=== PATIENT | male | born 1950 | race Caucasian/White ===

== ENCOUNTER 2016-11-30 16:27 | Emergency (ER) | payer MEDICARE ==
[~2016-11-30] VITALS: Wt 93.9 kg
[~2016-11-30 16:27] MED LIST: ALBUTEROL0.09 MG/A2 INH; ASMANEX TW0.22 MG/AC PO; AVELOX400 MG; BENICAR20 MG PO; CAPOTEN25 MG PO; COUMADIN10 MG PO; COUMADIN5 M2 PO; COUMADIN5 MG PO; CYCLOBENZAPRINE10 MG PO; DAYPRO600 M1 PO; DIOVAN160 M1; DOXYCYCLINE MO100 MG PO; ENALAPRIL5 MG PO; FLEXERIL10 MG PO; FLOMAX0.4 MG PO; Fioricet 325 MG1 TAB PO; HYDROCODONE BIT1 T11 PO; LIPITOR40 MG PO; LOVENOX100 MG/1 M PO; MOTRIN800 MG PO; NAPROSYN500 MG; NEURONTIN800 MG; NORFLEX100 MG PO; OMEPRAZOLE20 MG; POLYTRIM 1000010 ML OPH; PRAVACHOL40 MG PO; PREDNISONE10 MG PO; PROAIR HFA0.09 MG/AC IH; REGLAN10 M1 PO; ROBAXIN750 MG PO; SINGULAIR10 MG; TRAMADOL HCL50 MG PO; TRAMADOL50 MG; TYLENOL325 M1 PO; VASOTEC10 MG PO; VICODIN 5/500 505 MG PO; VICODIN 500 MG-1 TAB PO; ZOFRAN ODT4 MG SL
[2016-11-30 16:44] VITALS: BP 105/44
[2016-11-30] MEDS ORDERED: LEVOFLOXACIN500 MG PO (17:00)
[2016-11-30] MEDS ORDERED: NAPROSYN500 MG PO (17:00)
[2016-11-30] MEDS ORDERED: CLINDAMYCIN150 MG PO (17:00)
[2016-11-30] MEDS ORDERED: HYDROCODONE BIT1 T11 PO (17:28)
== END 2016-11-30 17:54 | disposition home or self-care (01) ==
LOC: ED 16:27
DX: S52.501A Unspecified fracture of the lower end of right radius, initial encounter for closed fracture (principal); F17.200 Nicotine dependence, unspecified, uncomplicated; Z88.0 Allergy status to penicillin; Z79.01 Long term (current) use of anticoagulants; W54.0XXA Bitten by dog, initial encounter; Y93.89 Activity, other specified; Y92.9 Unspecified place or not applicable; Y99.9 Unspecified external cause status

== ENCOUNTER 2016-12-01 14:21 | Emergency (ER) | payer MEDICARE ==
[~2016-12-01 14:21] MED LIST changes: +CLINDAMYCIN150 MG PO; +LEVOFLOXACIN500 MG PO; +NAPROSYN500 MG PO
== END 2016-12-01 19:02 | disposition home or self-care (01) ==
LOC: ED 14:21
DX: Z29.12 Encounter for prophylactic antivenin (principal); Z79.899 Other long term (current) drug therapy; Z79.01 Long term (current) use of anticoagulants; Z88.0 Allergy status to penicillin; Z88.1 Allergy status to other antibiotic agents

== ENCOUNTER 2016-12-05 19:05 | Emergency (ER) | payer MEDICARE ==
[~2016-12-05] VITALS: Ht 167.6 cm; Wt 90.7 kg
[2016-12-05 19:20] VITALS: BP 126/56
[2016-12-05] MEDS ORDERED: TRAMADOL HCL50 MG PO (19:22)
[2016-12-05] MEDS ORDERED: PREDNISONE20 M1 PO (21:14)
[2016-12-05] MEDS ORDERED: NORCO 5-325 TA1 EACH PO (21:14)
[2016-12-05] MEDS ORDERED: Orphenadrine C100 MG PO (21:14)
== END 2016-12-05 21:20 | disposition home or self-care (01) ==
LOC: ED 19:05
DX: M54.42 Lumbago with sciatica, left side (principal); F17.200 Nicotine dependence, unspecified, uncomplicated; Z95.2 Presence of prosthetic heart valve; Z98.890 Other specified postprocedural states; Z88.0 Allergy status to penicillin; Z88.1 Allergy status to other antibiotic agents

== ENCOUNTER → 2016-12-21 | Outpatient (CLI) | payer MEDICARE ==
[~2016-12-21] MED LIST changes: +NORCO 5-325 TA1 EACH PO; +Orphenadrine C100 MG PO; +PREDNISONE20 M1 PO
== END | disposition home or self-care (01) ==
LOC: ORTHO 03:03
DX: M25.531 Pain in right wrist (principal); M25.431 Effusion, right wrist

== ENCOUNTER → 2017-03-24 | Outpatient (CLI) | payer MEDICARE | END | disposition home or self-care (01) | LOC: US 09:00 | DX: Z13.6 Encounter for screening for cardiovascular disorders (principal) ==

== ENCOUNTER 2018-06-30 13:40 | Emergency (ER) | payer MEDICARE ==
[~2018-06-30] VITALS: Ht 167.6 cm; Wt 93.9 kg
[2018-06-30 13:40] VITALS: BP 123/48
[2018-06-30 14:04] LABS: BASO # 0.1 10*3/uL (0.0-0.1); BASO % 0.6 % (0.0-1.0); EOS # 0.2 10*3/uL (0.0-0.4); EOS % 1.8 % (1.0-4.0); HEMOGLOBIN 12.2 g/dl (14.0-18.0); LYMPH # 2.7 10*3/uL (1.3-4.4); LYMPH % 26.6 % (27.0-41.0); MEAN CELL VOLUME 93.6 fl (80.0-94.0); MEAN CORPUSCULAR HGB CONC 32.1 g/dl (33.0-37.0); MEAN PLATELET VOLUME 10.6 fl (9.6-12.3); MONO # 0.9 10*3/uL (0.1-1.0); MONO % 9.1 % (3.0-9.0); NEUT # 6.1 10*3/uL (2.3-7.9); NEUT % 60.7 % (47.0-73.0); PLATELET COUNT AUTOMATED 163 10*3/uL (130-400); RED BLOOD COUNT 4.06 10*6/uL (4.50-5.90); RED CELL DISTRI WIDTH 15.8 % (0-14.5); WHITE BLOOD COUNT 10.1 10*3/uL (4.8-10.8)
[2018-06-30 14:15] LABS: ACT PARTIAL THROMBO TIME 35.5 SECONDS (20.8-31.5); INTERNATIONAL NORM RATIO 2.4 (2.0-3.5)
[2018-06-30 14:27] LABS: ALBUMIN 3.9 gm/dl (3.1-4.5); ALKALINE PHOSPHATASE 75 U/L (45-117); BUN 26 mg/dl (7-24); CHLORIDE 108 mmol/L (98-107); CREATININE 1.35 mg/dL (0.70-1.30); LIPASE 126 U/L (73-393); POTASSIUM 4.6 mmol/L (3.5-5.1); SGOT/AST 9 IU/L (3-35); SGPT/ALT 21 U/L (12-78); SODIUM 138 mmol/L (136-145); TOTAL PROTEIN 7.5 gm/dL (6.4-8.2)
[2018-06-30 14:40] LABS: BILIRUBIN NEGATIVE (NEGATIVE); BLOOD NEGATIVE (NEGATIVE); CLARITY CLEAR (CLEAR); COLOR YELLOW (YELLOW); GLUCOSE NEGATIVE (NEGATIVE); KETONE NEGATIVE (NEGATIVE); LEUKO ESTERASE NEGATIVE (NEGATIVE); NITRITE NEGATIVE (NEGATIVE); PH 5.5 (5.0-9.0); UROBILINOGEN 0.2 E.U./dl (0.2-1.0)
[2018-06-30 14:50] LABS: BACTERIA TRACE; RBC 0-2 rbc/hpf (0-2); WBC 0-2 wbc/hpf (0-5)
[2018-06-30] MEDS ORDERED: MEDROL DOSEPAK4 MG PO (15:09)
== END 2018-06-30 15:15 | disposition home or self-care (01) ==
LOC: ED 13:40
PROVIDERS: Emergency Medicine
DX: K57.30 Diverticulosis of large intestine without perforation or abscess without bleeding (principal); R26.2 Difficulty in walking, not elsewhere classified; F17.210 Nicotine dependence, cigarettes, uncomplicated; Z79.02 Long term (current) use of antithrombotics/antiplatelets; Z88.1 Allergy status to other antibiotic agents; Z88.0 Allergy status to penicillin; Z79.899 Other long term (current) drug therapy

== ENCOUNTER 2018-11-07 12:42 | Emergency (ER) | payer MEDICARE ==
[~2018-11-07] VITALS: Ht 167.6 cm; Wt 93.9 kg
[2018-11-07 12:42] VITALS: BP 151/98
[~2018-11-07 12:42] MED LIST changes: +MEDROL DOSEPAK4 MG PO
[2018-11-07 13:23] LABS: BILIRUBIN NEGATIVE (NEGATIVE); BLOOD 1+ (NEGATIVE); CLARITY SL CLOUDY (CLEAR); COLOR YELLOW (YELLOW); GLUCOSE NEGATIVE (NEGATIVE); KETONE NEGATIVE (NEGATIVE); LEUKO ESTERASE NEGATIVE (NEGATIVE); NITRITE NEGATIVE (NEGATIVE); SPECIFIC GRAVITY 1.015 (1.005-1.030)
[2018-11-07 13:32] LABS: BASO % 0.2 % (0.0-1.0); EOS % 0.1 % (1.0-4.0); HEMATOCRIT 37.5 % (42.0-52.0); HEMOGLOBIN 12.1 g/dl (14.0-18.0); LYMPH % 12.5 % (27.0-41.0); MEAN CELL VOLUME 91.5 fl (80.0-94.0); MEAN CORPUSCULAR HGB 29.5 pg (27.0-31.0); MEAN CORPUSCULAR HGB CONC 32.3 g/dl (33.0-37.0); MEAN PLATELET VOLUME 11.2 fl (9.6-12.3); MONO # 0.7 10*3/uL (0.1-1.0); MONO % 8.7 % (3.0-9.0); NEUT # 6.2 10*3/uL (2.3-7.9); NEUT % 77.3 % (47.0-73.0); PLATELET COUNT AUTOMATED 187 10*3/uL (130-400); RED CELL DISTRI WIDTH 15.5 % (0-14.5); WHITE BLOOD COUNT 8.1 10*3/uL (4.8-10.8)
[2018-11-07 13:44] LABS: BACTERIA TRACE; RBC 16-20 rbc/hpf (0-2)
[2018-11-07 13:46] LABS: ALBUMIN 3.9 gm/dl (3.1-4.5); CREATININE 1.58 mg/dL (0.70-1.30); POTASSIUM 4.3 mmol/L (3.5-5.1); TOTAL PROTEIN 7.9 gm/dL (6.4-8.2)
== END 2018-11-07 15:15 | disposition home or self-care (01) ==
LOC: ED 12:42
PROVIDERS: Emergency Medicine
DX: B34.9 Viral infection, unspecified (principal); Z88.0 Allergy status to penicillin; Z88.1 Allergy status to other antibiotic agents; Z79.899 Other long term (current) drug therapy

== ENCOUNTER 2019-02-11 23:06 | Day surgery (SDC) | payer MEDICARE ==
[~2019-02-11] VITALS: Ht 167.6 cm; Wt 88.9 kg
--- NOTE | ~2019-02-11 | EKG ---
[place], [place] ELECTROCARDIOGRAM REPORT NAME: ROSALINA ARIAS UNIT #: [id number] ROOM: DOCTOR: EPIPHANY DRAFT REPORT BIRTHDATE: [birth year] [facility] Test Date: 2019-02-17 Test Time: 11:46:32 Pat Name: ROSALINA ARIAS Department: Room: Gender: M Web Production Designer: Teresa Lima : 1950 Requested By: SILVESTRE FLORES Order Number: [id number] Reading MD: Silvestre Flores MD Measurements Intervals [place] Rate: 66 P: -12 SC: 102 QRS: 42 QRSD: 90 T: 52 QT: 411 QTc: 431 Interpretive Statements Sinus rhythm Short SC interval Compared to ECG 02/12/2019 05:08:50 Short SC interval now present Ventricular premature complex(es) no longer present Aberrant conduction of supraventricular beat(s) no longer present Myocardial infarct finding no longer present Electronically Signed On 02-19-2019 3:18:39 PDT by Silvestre Flores MD CM:EKGRPT:ELECTROCARDIOGRAM REPORT [id number] SILVESTRE FLORES MD EPIPHANY DRAFT REPORT SILVESTRE FLORES MD
--- NOTE | ~2019-02-11 | PROC NOTE ---
[place], [place] PROCEDURE NOTE NAME: ROSALINA ARIAS UNIT #: [id number] ROOM: DOCTOR: KHAI GALVAN MD BIRTHDATE: [birth year] DOS: 02/17/2019 PROCEDURE: Replacement of a pacemaker generator and replacement of an atrial lead. PROCEDURE DETAILS: Sedation was provided with general anesthesia and the procedure was performed in the operating room. Pacemaker was located in the left anterior chest. This was prepped and draped for a sterile approach. A 1% lidocaine was infiltrated locally and a horizontal incision was made over the pacemaker generator and it was explanted. It was realized that the atrial lead had been severed. An 18-gauge Cook needle was used to access the subclavian vein, which was done without much difficulty and a 7-Malay peel-away sheath were then introduced into the subclavian vein followed by introduction of a screw in atrial lead, which was introduced into the right atrium and J-shaped stylet was used to introduce that into the right atrial appendage. It was screwed in place and good measurements were obtained. The length of the lead was optimized and the sleeve on the lead was advanced to the entry side and tied in with a 3-0 Ethibond. A 3-0 Ethibond was used to immobilize the lead to the floor of the pocket. The pocket was revised inferiorly and medially because of the large pacemaker generator. It was irrigated and leads were attached to the pacemaker generator, which was placed in the pocket. It was immobilized using a 3-0 Ethibond and subcutaneous tissue was closed with 3-0 chromic catgut with excellent apposition. An Op-Site was applied followed by a pressure dressing. INDICATIONS: 1. Pacemaker generator battery was . 2. Quantitative Equity Head, none. COMPLICATIONS: 1. [place] of an atrial lead, which was replaced. 2. Quantitative Equity Head, none. SPECIMENS: Old generator and tip of the atrial lead. The patient was given 1 gram of vancomycin before the procedure was initiated. [place], [place] PROCEDURE NOTE NAME: ROSALINA ARIAS UNIT #: [id number] ROOM: DOCTOR: KHAI GALVAN MD BIRTHDATE: [birth year] KHAI GALVAN MD CM:BIJU:PROCEDURE NOTE [id number] KHAI GALVAN MD
[2019-02-12] MEDS ORDERED: LOSARTAN POTASS50 M1 PO (02:21)
[2019-02-12] MEDS ORDERED: CYMBALTA30 MG PO (02:22)
[2019-02-12] MEDS ORDERED: WARFARIN SODIUM10 MG PO (02:23)
[2019-02-17] VITALS (8 sets, daily range): BP systolic 95–123; BP diastolic 42–65
[2019-02-17] MEDS ORDERED: Coumadin10 MG PO (08:55)
[2019-02-17] MEDS ORDERED: COUMADIN5 M2 PO (08:56)
[2019-02-17] MEDS ORDERED: COZAAR50 M1 PO (08:58)
[2019-02-17] MEDS ORDERED: CIPRO500 MG PO (12:07)
== END 2019-02-17 | disposition home or self-care (01) ==
LOC: SDC 02-17 08:50
DX: T82.190A Other mechanical complication of cardiac electrode, initial encounter (principal); Y83.8 Other surgical procedures as the cause of abnormal reaction of the patient, or of later complication, without mention of misadventure at the time of the procedure; Y92.89 Other specified places as the place of occurrence of the external cause; I25.10 Atherosclerotic heart disease of native coronary artery without angina pectoris; I25.2 Old myocardial infarction; I10 Essential (primary) hypertension; K21.9 Gastro-esophageal reflux disease without esophagitis; E78.5 Hyperlipidemia, unspecified; J44.9 Chronic obstructive pulmonary disease, unspecified; F10.21 Alcohol dependence, in remission; N40.0 Benign prostatic hyperplasia without lower urinary tract symptoms; E66.9 Obesity, unspecified; Z68.31 Body mass index [BMI] 31.0-31.9, adult; F32.9 Major depressive disorder, single episode, unspecified; Z79.01 Long term (current) use of anticoagulants; Z72.0 Tobacco use; Z88.8 Allergy status to other drugs, medicaments and biological substances; Z91.018 Allergy to other foods; Z79.899 Other long term (current) drug therapy; Z98.890 Other specified postprocedural states; Z95.2 Presence of prosthetic heart valve; Z82.49 Family history of ischemic heart disease and other diseases of the circulatory system

== ENCOUNTER → 2019-03-13 | Outpatient (CLI) | payer MEDICARE ==
[~2019-03-13] MED LIST changes: +CIPRO500 MG PO; +COZAAR50 M1 PO; +CYMBALTA30 MG PO; +Coumadin10 MG PO; +LOSARTAN POTASS50 M1 PO; +WARFARIN SODIUM10 MG PO
== END | disposition home or self-care (01) ==
LOC: RAD 12:50
DX: J44.9 Chronic obstructive pulmonary disease, unspecified (principal)

== ENCOUNTER → 2019-03-19 | Outpatient (CLI) | payer MEDICARE | END | disposition home or self-care (01) | LOC: RAD 15:08 | DX: M47.812 Spondylosis without myelopathy or radiculopathy, cervical region (principal); M54.12 Radiculopathy, cervical region ==

== ENCOUNTER → 2019-07-07 | Outpatient (CLI) | payer MEDICARE | END | disposition home or self-care (01) | LOC: RAD 17:33 → EDSTATUS 17:36 | DX: M16.12 Unilateral primary osteoarthritis, left hip (principal) ==

== ENCOUNTER 2019-09-05 12:28 | Emergency (ER) | payer MEDICARE ==
[~2019-09-05] VITALS: Wt 92.1 kg
[2019-09-05 12:29] VITALS: BP 153/56
== END 2019-09-05 13:12 | disposition home or self-care (01) ==
LOC: ED 12:28
DX: H60.92 Unspecified otitis externa, left ear (principal); I25.10 Atherosclerotic heart disease of native coronary artery without angina pectoris; G89.29 Other chronic pain; J44.9 Chronic obstructive pulmonary disease, unspecified; K21.9 Gastro-esophageal reflux disease without esophagitis; I25.2 Old myocardial infarction; E78.5 Hyperlipidemia, unspecified; E66.9 Obesity, unspecified; F17.200 Nicotine dependence, unspecified, uncomplicated; Z88.8 Allergy status to other drugs, medicaments and biological substances; Z88.0 Allergy status to penicillin; Z79.899 Other long term (current) drug therapy; Z79.01 Long term (current) use of anticoagulants; Z79.2 Long term (current) use of antibiotics

== ENCOUNTER 2019-09-23 20:20 | Emergency (ER) | payer MEDICARE ==
[~2019-09-23] VITALS: Ht 167.6 cm; Wt 93.0 kg
[2019-09-23 20:22] VITALS: BP 136/60
[2019-09-23 21:13] LABS: INTERNATIONAL NORM RATIO 2.5 (2.0-3.5)
== END 2019-09-23 22:00 | disposition home or self-care (01) ==
LOC: ED 20:20
PROVIDERS: Nurse Practitioner Family
DX: H92.21 Otorrhagia, right ear (principal); F17.200 Nicotine dependence, unspecified, uncomplicated; Z88.8 Allergy status to other drugs, medicaments and biological substances; Z88.0 Allergy status to penicillin; Z79.899 Other long term (current) drug therapy; Z79.01 Long term (current) use of anticoagulants

== ENCOUNTER 2019-11-11 02:54 | Emergency (ER) | payer MEDICARE ==
[~2019-11-11] VITALS: Ht 167.6 cm; Wt 93.9 kg
[2019-11-11 02:59] VITALS: BP 162/58
[2019-11-11 03:32] LABS: BASO % 0.5 % (0.0-1.0); EOS # 0.2 10*3/uL (0.0-0.4); EOS % 2.5 % (1.0-4.0); HEMATOCRIT 33.1 % (42.0-52.0); HEMOGLOBIN 10.4 g/dl (14.0-18.0); LYMPH # 2.9 10*3/uL (1.3-4.4); LYMPH % 39.1 % (27.0-41.0); MEAN CELL VOLUME 94.8 fl (80.0-94.0); MEAN CORPUSCULAR HGB 29.8 pg (27.0-31.0); MEAN CORPUSCULAR HGB CONC 31.4 g/dl (33.0-37.0); MEAN PLATELET VOLUME 10.7 fl (9.6-12.3); MONO # 0.7 10*3/uL (0.1-1.0); MONO % 9.2 % (3.0-9.0); NEUT # 3.6 10*3/uL (2.3-7.9); NEUT % 47.9 % (47.0-73.0); PLATELET COUNT AUTOMATED 152 10*3/uL (130-400); RED BLOOD COUNT 3.49 10*6/uL (4.50-5.90); RED CELL DISTRI WIDTH 16.2 % (0-14.5); WHITE BLOOD COUNT 7.5 10*3/uL (4.8-10.8)
[2019-11-11 03:43] LABS: ACT PARTIAL THROMBO TIME 35.3 SECONDS (20.0-32.1); INTERNATIONAL NORM RATIO 1.5 (2.0-3.5)
[2019-11-11] MEDS ORDERED: Percocet 325 MG1 TAB PO (03:53)
== END 2019-11-11 04:06 | disposition home or self-care (01) ==
LOC: ED 02:54
PROVIDERS: Emergency Medicine
DX: R04.0 Epistaxis (principal); D64.9 Anemia, unspecified; I25.10 Atherosclerotic heart disease of native coronary artery without angina pectoris; G89.29 Other chronic pain; J44.9 Chronic obstructive pulmonary disease, unspecified; K21.9 Gastro-esophageal reflux disease without esophagitis; I25.2 Old myocardial infarction; E78.5 Hyperlipidemia, unspecified; E66.9 Obesity, unspecified; I10 Essential (primary) hypertension; M79.7 Fibromyalgia; F17.200 Nicotine dependence, unspecified, uncomplicated; Z95.0 Presence of cardiac pacemaker; Z79.01 Long term (current) use of anticoagulants; Z88.8 Allergy status to other drugs, medicaments and biological substances; Z88.0 Allergy status to penicillin; Z79.899 Other long term (current) drug therapy

== ENCOUNTER → 2019-12-03 | Outpatient (CLI) | payer MEDICARE ==
[~2019-12-03] MED LIST changes: +Percocet 325 MG1 TAB PO
== END | disposition home or self-care (01) ==
LOC: LAB 08:32
DX: R53.83 Other fatigue (principal); D64.9 Anemia, unspecified

== ENCOUNTER 2020-02-08 22:17 | Emergency (ER) | payer MEDICARE ==
[~2020-02-08] VITALS: Ht 167.6 cm; Wt 95.7 kg
[2020-02-08 22:28] VITALS: BP 111/57
[2020-02-08 23:04] LABS: BASO % 0.4 % (0.0-1.0); HEMATOCRIT 37.4 % (42.0-52.0); HEMOGLOBIN 11.7 g/dl (14.0-18.0); LYMPH # 0.9 10*3/uL (1.3-4.4); LYMPH % 7.7 % (27.0-41.0); MEAN CELL VOLUME 92.1 fl (80.0-94.0); MEAN CORPUSCULAR HGB 28.8 pg (27.0-31.0); MEAN CORPUSCULAR HGB CONC 31.3 g/dl (33.0-37.0); MEAN PLATELET VOLUME 10.5 fl (9.6-12.3); MONO % 9.1 % (3.0-9.0); NEUT # 9.2 10*3/uL (2.3-7.9); NEUT % 82.1 % (47.0-73.0); PLATELET COUNT AUTOMATED 181 10*3/uL (130-400); RED BLOOD COUNT 4.06 10*6/uL (4.50-5.90); RED CELL DISTRI WIDTH 16.5 % (0-14.5); WHITE BLOOD COUNT 11.2 10*3/uL (4.8-10.8)
[2020-02-08 23:20] LABS: ALKALINE PHOSPHATASE 71 U/L (45-117); BUN 17 mg/dl (7-24); CHLORIDE 106 mmol/L (98-107); CREATININE 1.36 mg/dL (0.70-1.30); POTASSIUM 3.9 mmol/L (3.5-5.1); SGOT/AST 25 IU/L (3-35); SGPT/ALT 30 U/L (12-78); SODIUM 136 mmol/L (136-145)
== END 2020-02-09 02:11 | disposition home or self-care (01) ==
LOC: ED 22:17
PROVIDERS: Emergency Medicine
DX: R19.7 Diarrhea, unspecified (principal); R50.9 Fever, unspecified; I25.10 Atherosclerotic heart disease of native coronary artery without angina pectoris; J44.9 Chronic obstructive pulmonary disease, unspecified; K21.9 Gastro-esophageal reflux disease without esophagitis; I25.2 Old myocardial infarction; E78.5 Hyperlipidemia, unspecified; E66.9 Obesity, unspecified; F17.200 Nicotine dependence, unspecified, uncomplicated; Z88.0 Allergy status to penicillin; Z88.1 Allergy status to other antibiotic agents; Z79.899 Other long term (current) drug therapy; Z79.01 Long term (current) use of anticoagulants

== ENCOUNTER 2020-08-08 18:51 | Emergency (ER) | payer MEDICARE ==
[~2020-08-08] VITALS: Wt 97.5 kg
[2020-08-08 18:56] VITALS: BP 161/63
[2020-08-08] MEDS ORDERED: PREDNISONE50 MG PO (20:27)
[2020-08-08] MEDS ORDERED: IBU800 MG PO (20:27)
[2020-08-08] MEDS ORDERED: CYCLOBENZAPRINE10 MG PO (20:27)
[2020-08-08] MEDS ORDERED: NORCO 5-325 TA1 EACH PO (20:37)
== END 2020-08-08 20:37 | disposition home or self-care (01) ==
LOC: ED 18:51
DX: M54.41 Lumbago with sciatica, right side (principal); I10 Essential (primary) hypertension; K21.9 Gastro-esophageal reflux disease without esophagitis; J44.9 Chronic obstructive pulmonary disease, unspecified; I25.10 Atherosclerotic heart disease of native coronary artery without angina pectoris; M79.7 Fibromyalgia; F17.200 Nicotine dependence, unspecified, uncomplicated; Z88.0 Allergy status to penicillin; Z88.1 Allergy status to other antibiotic agents; Z79.899 Other long term (current) drug therapy; Z79.01 Long term (current) use of anticoagulants

== ENCOUNTER 2020-09-25 14:40 | Emergency (ER) | payer MEDICARE ==
[~2020-09-25] VITALS: Ht 167.6 cm; Wt 98.4 kg
[~2020-09-25 14:40] MED LIST changes: +IBU800 MG PO; +PREDNISONE50 MG PO
[2020-09-25 14:45] VITALS: BP 155/72
== END 2020-09-25 15:38 | disposition home or self-care (01) ==
LOC: ED 14:40
DX: S60.012A Contusion of left thumb without damage to nail, initial encounter (principal); Z88.0 Allergy status to penicillin; Z79.899 Other long term (current) drug therapy; Z79.01 Long term (current) use of anticoagulants; Z79.2 Long term (current) use of antibiotics; X58.XXXA Exposure to other specified factors, initial encounter; Y93.89 Activity, other specified; Y92.89 Other specified places as the place of occurrence of the external cause; Y99.8 Other external cause status

== ENCOUNTER 2021-01-15 21:11 | Emergency (ER) | payer MEDICARE ==
[~2021-01-15] VITALS: Ht 167.6 cm; Wt 93.0 kg
[2021-01-15 21:29] VITALS: BP 98/42
== END 2021-01-15 22:04 | disposition left against medical advice (07) ==
LOC: ED 21:11
DX: S69.92XA Unspecified injury of left wrist, hand and finger(s), initial encounter (principal); I25.10 Atherosclerotic heart disease of native coronary artery without angina pectoris; J44.9 Chronic obstructive pulmonary disease, unspecified; K21.9 Gastro-esophageal reflux disease without esophagitis; I10 Essential (primary) hypertension; F17.200 Nicotine dependence, unspecified, uncomplicated; Z88.0 Allergy status to penicillin; Z88.8 Allergy status to other drugs, medicaments and biological substances; Z79.899 Other long term (current) drug therapy; Z79.01 Long term (current) use of anticoagulants; Z98.890 Other specified postprocedural states; Z95.2 Presence of prosthetic heart valve; Z95.0 Presence of cardiac pacemaker; W22.8XXA Striking against or struck by other objects, initial encounter; Y93.89 Activity, other specified; Y92.89 Other specified places as the place of occurrence of the external cause; Y99.8 Other external cause status

== ENCOUNTER → 2021-05-09 | Outpatient (CLI) | payer MEDICARE | END | disposition home or self-care (01) | LOC: US 12:38 | PROVIDERS: ATTEND Internal Medicine | DX: M79.604 Pain in right leg (principal); R09.89 Other specified symptoms and signs involving the circulatory and respiratory systems ==

== ENCOUNTER → 2021-05-13 | Outpatient (CLI) | payer MEDICARE ==
[2021-05-13 12:48] LABS: BASO # 0.1 10*3/uL (0.0-0.1); BASO % 0.7 % (0.0-1.0); EOS # 0.1 10*3/uL (0.0-0.4); EOS % 1.1 % (1.0-4.0); HEMATOCRIT 37.7 % (42.0-52.0); LYMPH # 2.6 10*3/uL (1.3-4.4); LYMPH % 30.3 % (27.0-41.0); MEAN CELL VOLUME 90.4 fl (80.0-94.0); MEAN CORPUSCULAR HGB 28.1 pg (27.0-31.0); MEAN PLATELET VOLUME 9.7 fl (9.6-12.3); MONO # 0.8 10*3/uL (0.1-1.0); MONO % 9.7 % (3.0-9.0); NEUT # 4.8 10*3/uL (2.3-7.9); NEUT % 57.1 % (47.0-73.0); PLATELET COUNT AUTOMATED 160 10*3/uL (130-400); RED BLOOD COUNT 4.17 10*6/uL (4.50-5.90); RED CELL DISTRI WIDTH 16.6 % (0-14.5); WHITE BLOOD COUNT 8.4 10*3/uL (4.8-10.8)
[2021-05-13 13:08] LABS: ALBUMIN 3.4 gm/dl (3.1-4.5); BUN 16 mg/dl (7-24); CHLORIDE 107 mmol/L (98-107); CHOLESTEROL 194 mg/dL (<200); CREATININE 1.13 mg/dL (0.70-1.30); POTASSIUM 4.4 mmol/L (3.5-5.1); SGOT/AST 15 IU/L (3-35); SGPT/ALT 18 U/L (12-78); SODIUM 137 mmol/L (136-145); TOTAL PROTEIN 7.3 gm/dL (6.4-8.2); TRIGLYCERIDES 261 mg/dl (<150)
[2021-05-13 13:09] LABS: ALKALINE PHOSPHATASE 87 U/L (45-117); LDL CHOLESTEROL 116 mg/dL (9-159)
[2021-05-13 13:15] LABS: FREE T4 0.65 ng/dl (0.76-1.46)
== END | disposition home or self-care (01) ==
LOC: LAB 12:35
PROVIDERS: ATTEND Internal Medicine
DX: I10 Essential (primary) hypertension (principal); F32.9 Major depressive disorder, single episode, unspecified; E78.5 Hyperlipidemia, unspecified

== ENCOUNTER → 2021-05-16 | Outpatient (CLI) | payer MEDICARE | END | disposition home or self-care (01) | LOC: CT 05-13 12:33 | PROVIDERS: ATTEND Internal Medicine | DX: I70.8 Atherosclerosis of other arteries (principal); N28.1 Cyst of kidney, acquired; I70.202 Unspecified atherosclerosis of native arteries of extremities, left leg; K57.30 Diverticulosis of large intestine without perforation or abscess without bleeding ==

== ENCOUNTER → 2021-05-31 | Outpatient (CLI) | payer MEDICARE ==
[~2021-05-31] MED LIST changes: +BACLOFEN20 M1 PO; +CLARITIN10 MG PO; -CYMBALTA30 MG PO; +CYMBALTA60 MG PO; +SINGULAIR10 M1 PO
== END | disposition home or self-care (01) ==
LOC: CARD 00:22
PROVIDERS: ATTEND Internal Medicine
DX: R07.2 Precordial pain (principal); R53.81 Other malaise

== ENCOUNTER → 2021-06-20 | Outpatient (CLI) | payer MEDICARE | END | disposition home or self-care (01) | LOC: LAB 11:16 → COVID19 11:16 | PROVIDERS: ATTEND Surgery Vascular Surgery | DX: Z01.812 Encounter for preprocedural laboratory examination (principal); Z20.822 Contact with and (suspected) exposure to COVID-19 ==

== ENCOUNTER → 2021-06-27 | Outpatient (CLI) | payer MEDICARE | END | disposition home or self-care (01) | LOC: LAB 12:14 | PROVIDERS: ATTEND Surgery Vascular Surgery | DX: Z01.812 Encounter for preprocedural laboratory examination (principal); Z20.822 Contact with and (suspected) exposure to COVID-19 ==

== ENCOUNTER → 2021-07-02 | Outpatient (CLI) | payer MEDICARE | END | disposition home or self-care (01) | LOC: LAB 14:02 | PROVIDERS: ATTEND Surgery Vascular Surgery | DX: Z01.812 Encounter for preprocedural laboratory examination (principal); Z20.822 Contact with and (suspected) exposure to COVID-19 ==

== ENCOUNTER 2021-09-07 22:24 | Emergency (ER) | payer MEDICARE ==
[~2021-09-07] VITALS: Ht 167.6 cm; Wt 93.9 kg
[2021-09-07 22:36] VITALS: BP 171/61
[2021-09-07 23:07] LABS: BASO # 0.1 10*3/uL (0.0-0.1); BASO % 0.4 % (0.0-1.0); EOS # 0.1 10*3/uL (0.0-0.4); EOS % 1.2 % (1.0-4.0); HEMATOCRIT 28.9 % (42.0-52.0); LYMPH # 2.3 10*3/uL (1.3-4.4); MEAN CORPUSCULAR HGB 27.1 pg (27.0-31.0); MEAN CORPUSCULAR HGB CONC 30.1 g/dl (33.0-37.0); MEAN PLATELET VOLUME 9.8 fl (9.6-12.3); MONO # 0.9 10*3/uL (0.1-1.0); MONO % 7.4 % (3.0-9.0); NEUT # 8.6 10*3/uL (2.3-7.9); NEUT % 71.1 % (47.0-73.0); PLATELET COUNT AUTOMATED 189 10*3/uL (130-400); RED BLOOD COUNT 3.21 10*6/uL (4.50-5.90); RED CELL DISTRI WIDTH 16.7 % (0-14.5); WHITE BLOOD COUNT 12.1 10*3/uL (4.8-10.8)
[2021-09-07 23:23] LABS: ACT PARTIAL THROMBO TIME 41.2 SECONDS (20.0-32.1); INTERNATIONAL NORM RATIO 1.9 (2.0-3.5)
[2021-09-07 23:30] LABS: ALBUMIN 3.5 gm/dl (3.1-4.5); ALKALINE PHOSPHATASE 84 U/L (45-117); BUN 15 mg/dl (7-24); CHLORIDE 112 mmol/L (98-107); CREATININE 1.14 mg/dL (0.70-1.30); POTASSIUM 4.1 mmol/L (3.5-5.1); SGOT/AST 7 IU/L (3-35); SGPT/ALT 20 U/L (12-78); SODIUM 139 mmol/L (136-145); TOTAL PROTEIN 7.2 gm/dL (6.4-8.2)
[2021-09-07 23:33] LABS: TROPONIN I < 0.015 ng/ml (<0.045)
[2021-09-08 00:07] LABS: BILIRUBIN Negative (Negative); BLOOD Negative (Negative); CLARITY Clear (Clear); COLOR Yellow (Yellow); GLUCOSE Negative (Negative); KETONE Trace (Negative); LEUKO ESTERASE Negative (Negative); NITRITE Negative (Negative); PH 5.5 (4.5-8.0); SPECIFIC GRAVITY 1.025 (1.001-1.030)
[2021-09-08 00:47] LABS: BACTERIA TRACE
== END 2021-09-08 00:55 | disposition left against medical advice (07) ==
LOC: ED 22:24 → EDHOLD 09-08 00:30 → ED 09-08 00:30
PROVIDERS: Emergency Medicine; Family Medicine
DX: R55 Syncope and collapse (principal); Z20.822 Contact with and (suspected) exposure to COVID-19; R07.9 Chest pain, unspecified; F17.200 Nicotine dependence, unspecified, uncomplicated; Z88.0 Allergy status to penicillin; Z88.1 Allergy status to other antibiotic agents; Z79.899 Other long term (current) drug therapy

== ENCOUNTER 2021-11-13 13:07 | Emergency (ER) | payer MEDICARE ==
[~2021-11-13] VITALS: Ht 167.6 cm; Wt 94.3 kg
[~2021-11-13 13:07] MED LIST changes: +Coumadin5 MG PO
[2021-11-13 13:42] VITALS: BP 150/56
== END 2021-11-13 16:12 | disposition left against medical advice (07) ==
LOC: ED 13:07
DX: R05.9 Cough, unspecified (principal); Z53.21 Procedure and treatment not carried out due to patient leaving prior to being seen by health care provider

== ENCOUNTER 2021-11-15 04:49 | Emergency (ER) | payer MEDICARE ==
[~2021-11-15] VITALS: Ht 172.7 cm; Wt 90.7 kg
[2021-11-15 05:07] VITALS: BP 104/71
[2021-11-15 05:47] LABS: ALBUMIN 3.4 gm/dl (3.1-4.5); BUN 16 mg/dl (7-24); CHLORIDE 108 mmol/L (98-107); CREATININE 1.12 mg/dL (0.70-1.30); SGOT/AST 13 IU/L (3-35); SGPT/ALT 20 U/L (12-78); SODIUM 138 mmol/L (136-145); TOTAL PROTEIN 7.3 gm/dL (6.4-8.2)
[2021-11-15 05:48] LABS: ALKALINE PHOSPHATASE 100 U/L (45-117)
[2021-11-15 05:55] LABS: HEMATOCRIT 29.2 % (42.0-52.0); MEAN CELL VOLUME 84.1 fl (80.0-94.0); MEAN CORPUSCULAR HGB 24.5 pg (27.0-31.0); MEAN CORPUSCULAR HGB CONC 29.1 g/dl (33.0-37.0); MEAN PLATELET VOLUME 10.5 fl (9.6-12.3); NUCLEATED RED BLOOD CELL 0.2 % (0.0-0.0); PLATELET COUNT AUTOMATED 224 10*3/uL (130-400); RED BLOOD COUNT 3.47 10*6/uL (4.50-5.90); RED CELL DISTRI WIDTH 18.4 % (0-14.5)
[2021-11-15 06:26] LABS: ATYPICAL LYMPHS 1 % (0-0); BASOPHILS 1 % (0-1); TOTAL CELLS COUNTED 100 #CELLS
[2021-11-15 06:27] LABS: OVALOCYTES FEW; PLATELET SUFFICIENCY NORMAL (NORMAL); POLYCHROMASIA SLIGHT
== END 2021-11-15 07:56 | disposition home or self-care (01) ==
LOC: ED 04:49
PROVIDERS: Internal Medicine
DX: B34.9 Viral infection, unspecified (principal); Z20.822 Contact with and (suspected) exposure to COVID-19; D64.9 Anemia, unspecified

== ENCOUNTER → 2021-11-16 | Outpatient (CLI) | payer MEDICARE ==
[~2021-11-16] MED LIST changes: +GABAPENTIN100 M2 PO; +MUCUS RLF DM E1 EACH PO; +ROPINIROLE HYD0.5 MG PO
[2021-11-16 13:38] LABS: MEAN CELL VOLUME 82.1 fl (80.0-94.0); MEAN CORPUSCULAR HGB 24.6 pg (27.0-31.0); MEAN PLATELET VOLUME 10.2 fl (9.6-12.3); NUCLEATED RED BLOOD CELL 0.1 % (0.0-0.0); PLATELET COUNT AUTOMATED 229 10*3/uL (130-400); RED BLOOD COUNT 3.29 10*6/uL (4.50-5.90); RED CELL DISTRI WIDTH 18.3 % (0-14.5)
[2021-11-16 13:53] LABS: ATYPICAL LYMPHS 1 % (0-0); TOTAL CELLS COUNTED 100 #CELLS
[2021-11-16 13:54] LABS: ACANTHOCYTES FEW; OVALOCYTES FEW; PLATELET SUFFICIENCY NORMAL (NORMAL); POLYCHROMASIA SLIGHT; SCHISTOCYTES FEW
== END | disposition home or self-care (01) ==
LOC: LAB 12:45
PROVIDERS: ATTEND Internal Medicine Nephrology
DX: J44.1 Chronic obstructive pulmonary disease with (acute) exacerbation (principal)

== ENCOUNTER 2021-11-17 14:28 | Inpatient (IN) | payer MEDICARE ==
[~2021-11-17] VITALS: Ht 167.6 cm; Wt 93.5 kg
[~2021-11-17 14:28] MED LIST changes: -GABAPENTIN100 M2 PO; -MUCUS RLF DM E1 EACH PO; -ROPINIROLE HYD0.5 MG PO
[2021-11-17 14:40] VITALS: BP 137/67
[2021-11-17 15:24] LABS: MEAN CELL VOLUME 82.5 fl (80.0-94.0); MEAN CORPUSCULAR HGB 24.4 pg (27.0-31.0); MEAN CORPUSCULAR HGB CONC 29.6 g/dl (33.0-37.0); MEAN PLATELET VOLUME 10.1 fl (9.6-12.3); NUCLEATED RED BLOOD CELL 0.2 % (0.0-0.0); PLATELET COUNT AUTOMATED 233 10*3/uL (130-400); RED BLOOD COUNT 3.15 10*6/uL (4.50-5.90); RED CELL DISTRI WIDTH 18.3 % (0-14.5); WHITE BLOOD COUNT 17.6 10*3/uL (4.8-10.8)
[2021-11-17 15:37] LABS: ALBUMIN 3.2 gm/dl (3.1-4.5); ALKALINE PHOSPHATASE 85 U/L (45-117); BUN 23 mg/dl (7-24); CHLORIDE 109 mmol/L (98-107); CREATININE 1.06 mg/dL (0.70-1.30); POTASSIUM 3.9 mmol/L (3.5-5.1); SGOT/AST 17 IU/L (3-35); SGPT/ALT 35 U/L (12-78); SODIUM 140 mmol/L (136-145); TOTAL PROTEIN 6.9 gm/dL (6.4-8.2)
[2021-11-17 15:46] LABS: INTERNATIONAL NORM RATIO 5.1 (2.0-3.5)
[2021-11-17 15:50] LABS: TOTAL CELLS COUNTED 100 #CELLS
[2021-11-17 15:51] LABS: MICROCYTOSIS SLIGHT; PLATELET SUFFICIENCY NORMAL (NORMAL); POLYCHROMASIA SLIGHT
[2021-11-17 19:22] LABS: BILIRUBIN Negative (Negative); BLOOD Negative (Negative); CLARITY Clear (Clear); COLOR Dark Yellow (Yellow); GLUCOSE Negative (Negative); KETONE Negative (Negative); LEUKO ESTERASE Negative (Negative); NITRITE Negative (Negative); SPECIFIC GRAVITY >= 1.030 (1.001-1.030)
[2021-11-17 19:37] LABS: BACTERIA 1+; CALCIUM OXALATE CRYSTALS Trace
[2021-11-17 20:27] VITALS: BP 154/51
[2021-11-17] MEDS ORDERED: GABAPENTIN100 M2 PO (21:34)
[2021-11-17] MEDS ORDERED: ROPINIROLE HYD0.5 MG PO (21:35)
[2021-11-17] MEDS ORDERED: MUCUS RLF DM E1 EACH PO (21:36)
[2021-11-18] VITALS (8 sets, daily range): BP systolic 131–156; BP diastolic 44–88
[2021-11-18 06:20] LABS: HEMATOCRIT 26.1 % (42.0-52.0); MEAN CELL VOLUME 82.6 fl (80.0-94.0); MEAN CORPUSCULAR HGB 24.7 pg (27.0-31.0); MEAN CORPUSCULAR HGB CONC 29.9 g/dl (33.0-37.0); MEAN PLATELET VOLUME 10.2 fl (9.6-12.3); NUCLEATED RED BLOOD CELL 0.1 10*3/uL (0.0-0.0); NUCLEATED RED BLOOD CELL 0.4 % (0.0-0.0); PLATELET COUNT AUTOMATED 239 10*3/uL (130-400); RED BLOOD COUNT 3.16 10*6/uL (4.50-5.90); RED CELL DISTRI WIDTH 18.2 % (0-14.5); WHITE BLOOD COUNT 17.9 10*3/uL (4.8-10.8)
[2021-11-18 06:27] LABS: ALBUMIN 3.2 gm/dl (3.1-4.5); BUN 22 mg/dl (7-24); CHLORIDE 108 mmol/L (98-107); LDH 309 U/L (87-241); POTASSIUM 3.7 mmol/L (3.5-5.1); SGPT/ALT 34 U/L (12-78); SODIUM 138 mmol/L (136-145); TOTAL PROTEIN 6.9 gm/dL (6.4-8.2)
[2021-11-18 06:30] LABS: INTERNATIONAL NORM RATIO 3.7 (2.0-3.5)
[2021-11-18 06:50] LABS: ALKALINE PHOSPHATASE 86 U/L (45-117); CREATININE 1.05 mg/dL (0.70-1.30); FREE T4 0.84 ng/dl (0.76-1.46); SGOT/AST 15 IU/L (3-35); THYROID STIM HORMONE (HS) 0.717 uIU/ml (0.358-4.75)
[2021-11-18 07:33] LABS: BASOPHILS 1 % (0-1); POLYCHROMASIA SLIGHT; TOTAL CELLS COUNTED 100 #CELLS
[2021-11-18 07:34] LABS: OVALOCYTES FEW; PLATELET SUFFICIENCY NORMAL (NORMAL); SCHISTOCYTES FEW
[2021-11-18 08:38] LABS: VITAMIN D, 25-HYDROXY 20.6 ng/mL (30-100)
[2021-11-19] VITALS (9 sets, daily range): BP systolic 138–164; BP diastolic 55–66
[2021-11-19 06:42] LABS: HEMATOCRIT 27.7 % (42.0-52.0); MEAN CELL VOLUME 82.4 fl (80.0-94.0); MEAN CORPUSCULAR HGB 25.3 pg (27.0-31.0); MEAN CORPUSCULAR HGB CONC 30.7 g/dl (33.0-37.0); MEAN PLATELET VOLUME 9.8 fl (9.6-12.3); NUCLEATED RED BLOOD CELL 0.2 % (0.0-0.0); PLATELET COUNT AUTOMATED 216 10*3/uL (130-400); RED BLOOD COUNT 3.36 10*6/uL (4.50-5.90); RED CELL DISTRI WIDTH 17.8 % (0-14.5); WHITE BLOOD COUNT 16.6 10*3/uL (4.8-10.8)
[2021-11-19 06:53] LABS: ALKALINE PHOSPHATASE 78 U/L (45-117); BUN 20 mg/dl (7-24); CHLORIDE 107 mmol/L (98-107); CREATININE 0.94 mg/dL (0.70-1.30); POTASSIUM 4.2 mmol/L (3.5-5.1); SGOT/AST 10 IU/L (3-35); SGPT/ALT 32 U/L (12-78); SODIUM 140 mmol/L (136-145); TOTAL PROTEIN 6.6 gm/dL (6.4-8.2)
[2021-11-19 07:31] LABS: OVALOCYTES FEW; TOTAL CELLS COUNTED 100 #CELLS
[2021-11-19 07:32] LABS: PLATELET SUFFICIENCY NORMAL (NORMAL)
[2021-11-20] VITALS: BP 167/77
[2021-11-20 06:24] LABS: MEAN CELL VOLUME 82.9 fl (80.0-94.0); MEAN CORPUSCULAR HGB 25.1 pg (27.0-31.0); MEAN CORPUSCULAR HGB CONC 30.3 g/dl (33.0-37.0); NUCLEATED RED BLOOD CELL 0.1 10*3/uL (0.0-0.0); NUCLEATED RED BLOOD CELL 0.5 % (0.0-0.0); PLATELET COUNT AUTOMATED 237 10*3/uL (130-400); RED BLOOD COUNT 3.74 10*6/uL (4.50-5.90); RED CELL DISTRI WIDTH 17.4 % (0-14.5); WHITE BLOOD COUNT 21.4 10*3/uL (4.8-10.8)
[2021-11-20 06:40] LABS: BUN 21 mg/dl (7-24); CHLORIDE 106 mmol/L (98-107); CREATININE 0.93 mg/dL (0.70-1.30); SODIUM 138 mmol/L (136-145)
[2021-11-20 07:37] LABS: TOTAL CELLS COUNTED 100 #CELLS
[2021-11-20 07:38] LABS: OVALOCYTES FEW; PLATELET SUFFICIENCY NORMAL (NORMAL); POLYCHROMASIA SLIGHT; SCHISTOCYTES FEW; TOXIC GRANULATION SLIGHT
[2021-11-20 08:00] VITALS: BP 168/66
[2021-11-20 12:00] VITALS: BP 159/61
[2021-11-20 16:00] VITALS: BP 158/68
[2021-11-20 20:00] VITALS: BP 164/60
[2021-11-21] VITALS: BP 165/69
[2021-11-21 06:37] LABS: HEMATOCRIT 30.6 % (42.0-52.0); MEAN CELL VOLUME 82.3 fl (80.0-94.0); MEAN CORPUSCULAR HGB 25.3 pg (27.0-31.0); MEAN CORPUSCULAR HGB CONC 30.7 g/dl (33.0-37.0); MEAN PLATELET VOLUME 10.3 fl (9.6-12.3); NUCLEATED RED BLOOD CELL 0.1 10*3/uL (0.0-0.0); NUCLEATED RED BLOOD CELL 0.3 % (0.0-0.0); PLATELET COUNT AUTOMATED 231 10*3/uL (130-400); RED BLOOD COUNT 3.72 10*6/uL (4.50-5.90); RED CELL DISTRI WIDTH 17.7 % (0-14.5); WHITE BLOOD COUNT 20.2 10*3/uL (4.8-10.8)
[2021-11-21 07:01] LABS: BUN 21 mg/dl (7-24); CHLORIDE 106 mmol/L (98-107); CREATININE 0.88 mg/dL (0.70-1.30); POTASSIUM 4.4 mmol/L (3.5-5.1); SODIUM 139 mmol/L (136-145)
[2021-11-21 07:18] LABS: INTERNATIONAL NORM RATIO 1.9 (2.0-3.5)
[2021-11-21 08:00] VITALS: BP 134/59
[2021-11-21 08:16] LABS: ACANTHOCYTES FEW; PLATELET SUFFICIENCY NORMAL (NORMAL); POLYCHROMASIA SLIGHT; SCHISTOCYTES FEW; TOTAL CELLS COUNTED 100 #CELLS
[2021-11-21 08:17] LABS: OVALOCYTES FEW
== END 2021-11-21 10:18 | disposition left against medical advice (07) | DRG 812 ==
LOC: ED 14:28 → 5E 17:42 → EDHOLD 17:42 → 4E 17:42 → 5E 11-20 05:31
PROVIDERS: Internal Medicine; Physician Assistant; ADMIT Internal Medicine; ATTEND Internal Medicine
PROC: 30233N1 Transfusion of Nonautologous Red Blood Cells into Peripheral Vein, Percutaneous Approach (ICD-10-PCS; principal; 2021-11-18)
DX: D46.9 Myelodysplastic syndrome, unspecified (principal); J44.9 Chronic obstructive pulmonary disease, unspecified; T45.511A Poisoning by anticoagulants, accidental (unintentional), initial encounter; R79.1 Abnormal coagulation profile; K44.9 Diaphragmatic hernia without obstruction or gangrene; E66.9 Obesity, unspecified; F32.A Depression, unspecified; E78.5 Hyperlipidemia, unspecified; E55.9 Vitamin D deficiency, unspecified; Z79.51 Long term (current) use of inhaled steroids; I25.10 Atherosclerotic heart disease of native coronary artery without angina pectoris; G56.03 Carpal tunnel syndrome, bilateral upper limbs; D50.0 Iron deficiency anemia secondary to blood loss (chronic); F17.210 Nicotine dependence, cigarettes, uncomplicated; K21.9 Gastro-esophageal reflux disease without esophagitis; N40.0 Benign prostatic hyperplasia without lower urinary tract symptoms; Z79.01 Long term (current) use of anticoagulants; Z95.3 Presence of xenogenic heart valve; Z98.1 Arthrodesis status; Z86.010 Personal history of colon polyps; I25.2 Old myocardial infarction; Z95.0 Presence of cardiac pacemaker; Y92.89 Other specified places as the place of occurrence of the external cause; Z82.49 Family history of ischemic heart disease and other diseases of the circulatory system; Z88.0 Allergy status to penicillin; Z88.8 Allergy status to other drugs, medicaments and biological substances; Z68.33 Body mass index [BMI] 33.0-33.9, adult; Z78.9 Other specified health status

== ENCOUNTER → 2021-11-22 | Outpatient (CLI) | payer MEDICARE ==
[~2021-11-22] MED LIST changes: +GABAPENTIN100 M2 PO; +MUCUS RLF DM E1 EACH PO; +ROPINIROLE HYD0.5 MG PO
[2021-11-22 16:42] LABS: HEMATOCRIT 35.3 % (42.0-52.0); MEAN CELL VOLUME 82.7 fl (80.0-94.0); MEAN CORPUSCULAR HGB 25.1 pg (27.0-31.0); MEAN CORPUSCULAR HGB CONC 30.3 g/dl (33.0-37.0); MEAN PLATELET VOLUME 9.9 fl (9.6-12.3); NUCLEATED RED BLOOD CELL 0.2 % (0.0-0.0); PLATELET COUNT AUTOMATED 251 10*3/uL (130-400); RED BLOOD COUNT 4.27 10*6/uL (4.50-5.90); RED CELL DISTRI WIDTH 18.1 % (0-14.5)
[2021-11-22 16:51] LABS: INTERNATIONAL NORM RATIO 2.1 (2.0-3.5)
[2021-11-22 16:59] LABS: BASOPHILS 2 % (0-1); TOTAL CELLS COUNTED 100 #CELLS
[2021-11-22 17:01] LABS: BURR CELLS FEW; PLATELET SUFFICIENCY NORMAL (NORMAL)
[2021-11-22 17:02] LABS: MICROCYTOSIS SLIGHT; OVALOCYTES FEW
== END | disposition home or self-care (01) ==
LOC: LAB 16:18
PROVIDERS: ATTEND Internal Medicine
DX: K92.2 Gastrointestinal hemorrhage, unspecified (principal)

== ENCOUNTER 2022-01-19 07:29 | Emergency (ER) | payer MEDICARE ==
[~2022-01-19] VITALS: Ht 167.6 cm; Wt 88.5 kg
[2022-01-19 08:33] LABS: HEMATOCRIT 34.3 % (42.0-52.0); MEAN CELL VOLUME 82.5 fl (80.0-94.0); MEAN CORPUSCULAR HGB CONC 30.3 g/dl (33.0-37.0); MEAN PLATELET VOLUME 10.4 fl (9.6-12.3); PLATELET COUNT AUTOMATED 230 10*3/uL (130-400); RED BLOOD COUNT 4.16 10*6/uL (4.50-5.90); RED CELL DISTRI WIDTH 20.5 % (0-14.5); WHITE BLOOD COUNT 15.5 10*3/uL (4.8-10.8)
[2022-01-19 08:37] LABS: MANUAL DIFF REFLEX YES
[2022-01-19 08:59] LABS: ACT PARTIAL THROMBO TIME 61.3 SECONDS (20.0-32.1); INTERNATIONAL NORM RATIO 3.5 (2.0-3.5)
[2022-01-19 09:03] LABS: ALKALINE PHOSPHATASE 95 U/L (45-117); BUN 14 mg/dl (7-24); CHLORIDE 104 mmol/L (98-107); CREATININE 0.93 mg/dL (0.70-1.30); POTASSIUM 4.2 mmol/L (3.5-5.1); SGOT/AST 10 IU/L (3-35); SGPT/ALT 18 U/L (12-78); SODIUM 134 mmol/L (136-145); TOTAL PROTEIN 7.6 gm/dL (6.4-8.2)
[2022-01-19 09:05] LABS: PLATELET SUFFICIENCY NORMAL (NORMAL); TOTAL CELLS COUNTED 100 #CELLS
[2022-01-19 09:29] VITALS: BP 113/67
[2022-01-19] MEDS ORDERED: PREDNISONE50 MG PO (11:36)
[2022-01-19] MEDS ORDERED: PERCOCET 5-3251 EACH PO (11:36)
== END 2022-01-19 11:40 | disposition home or self-care (01) ==
LOC: ED 07:29
PROVIDERS: Emergency Medicine
DX: S16.1XXA Strain of muscle, fascia and tendon at neck level, initial encounter (principal); Z88.1 Allergy status to other antibiotic agents; Z88.0 Allergy status to penicillin; Z98.890 Other specified postprocedural states; Z87.891 Personal history of nicotine dependence; X58.XXXA Exposure to other specified factors, initial encounter; Y93.89 Activity, other specified; Y92.89 Other specified places as the place of occurrence of the external cause; Y99.8 Other external cause status

== ENCOUNTER → 2022-02-06 | Outpatient (CLI) | payer MEDICARE ==
[~2022-02-06] MED LIST changes: +PERCOCET 5-3251 EACH PO
== END | disposition home or self-care (01) ==
LOC: RAD 13:14
PROVIDERS: ATTEND Internal Medicine
DX: J98.4 Other disorders of lung (principal)

== ENCOUNTER 2022-02-20 12:21 | Emergency (ER) | payer MEDICARE ==
[~2022-02-20] VITALS: Ht 167.6 cm; Wt 91.2 kg
[2022-02-20 12:31] VITALS: BP 160/52
[2022-02-20 13:26] LABS: BASO # 0.1 10*3/uL (0.0-0.1); BASO % 0.7 % (0.0-1.0); EOS # 0.1 10*3/uL (0.0-0.4); EOS % 1.2 % (1.0-4.0); HEMATOCRIT 33.8 % (42.0-52.0); LYMPH # 2.3 10*3/uL (1.3-4.4); MEAN CORPUSCULAR HGB 24.6 pg (27.0-31.0); MEAN CORPUSCULAR HGB CONC 29.6 g/dl (33.0-37.0); MEAN PLATELET VOLUME 9.7 fl (9.6-12.3); MONO # 0.9 10*3/uL (0.1-1.0); MONO % 10.4 % (3.0-9.0); NEUT # 5.2 10*3/uL (2.3-7.9); NEUT % 59.4 % (47.0-73.0); PLATELET COUNT AUTOMATED 206 10*3/uL (130-400); RED BLOOD COUNT 4.07 10*6/uL (4.50-5.90); RED CELL DISTRI WIDTH 18.8 % (0-14.5); WHITE BLOOD COUNT 8.8 10*3/uL (4.8-10.8)
[2022-02-20 13:36] LABS: INTERNATIONAL NORM RATIO 1.6 (2.0-3.5)
[2022-02-20 13:42] LABS: ALKALINE PHOSPHATASE 99 U/L (45-117); BUN 18 mg/dl (7-24); CHLORIDE 109 mmol/L (98-107); CREATININE 0.94 mg/dL (0.70-1.30); POTASSIUM 4.3 mmol/L (3.5-5.1); SGOT/AST 10 IU/L (3-35); SGPT/ALT 18 U/L (12-78); SODIUM 140 mmol/L (136-145); TOTAL PROTEIN 7.2 gm/dL (6.4-8.2)
== END 2022-02-20 16:21 | disposition home or self-care (01) ==
LOC: ED 12:21
PROVIDERS: Emergency Medicine
DX: R79.1 Abnormal coagulation profile (principal); I25.10 Atherosclerotic heart disease of native coronary artery without angina pectoris; J44.9 Chronic obstructive pulmonary disease, unspecified; I50.9 Heart failure, unspecified; I25.2 Old myocardial infarction; K21.9 Gastro-esophageal reflux disease without esophagitis; E78.5 Hyperlipidemia, unspecified; Z88.0 Allergy status to penicillin; Z88.1 Allergy status to other antibiotic agents; Z98.890 Other specified postprocedural states; Z87.891 Personal history of nicotine dependence

== ENCOUNTER 2022-06-10 18:20 | Emergency (ER) | payer MEDICARE ==
[~2022-06-10] VITALS: Ht 167.6 cm; Wt 93.9 kg
[2022-06-10 18:27] VITALS: BP 154/68
== END 2022-06-10 19:28 | disposition home or self-care (01) ==
LOC: ED 18:20
DX: H60.92 Unspecified otitis externa, left ear (principal); Z88.0 Allergy status to penicillin; Z88.1 Allergy status to other antibiotic agents; Z98.890 Other specified postprocedural states; F17.200 Nicotine dependence, unspecified, uncomplicated

== ENCOUNTER → 2022-08-22 | Outpatient (CLI) | payer MEDICARE ==
[2022-08-22 15:28] LABS: BASO # 0.1 10*3/uL (0.0-0.1); BASO % 0.9 % (0.0-1.0); EOS # 0.1 10*3/uL (0.0-0.4); HEMATOCRIT 32.4 % (42.0-52.0); LYMPH # 3.5 10*3/uL (1.3-4.4); LYMPH % 30.3 % (27.0-41.0); MEAN CORPUSCULAR HGB 23.4 pg (27.0-31.0); MEAN CORPUSCULAR HGB CONC 29.6 g/dl (33.0-37.0); MEAN PLATELET VOLUME 9.7 fl (9.6-12.3); MONO # 1.1 10*3/uL (0.1-1.0); MONO % 9.7 % (3.0-9.0); NEUT # 6.4 10*3/uL (2.3-7.9); NEUT % 56.1 % (47.0-73.0); PLATELET COUNT AUTOMATED 228 10*3/uL (130-400); RED CELL DISTRI WIDTH 19.4 % (0-14.5); WHITE BLOOD COUNT 11.5 10*3/uL (4.8-10.8)
[2022-08-22 16:04] LABS: ALKALINE PHOSPHATASE 77 U/L (45-117); BUN 19 mg/dl (7-24); CHLORIDE 106 mmol/L (98-107); POTASSIUM 4.1 mmol/L (3.5-5.1); SGOT/AST 10 IU/L (3-35); SGPT/ALT 21 U/L (12-78); SODIUM 137 mmol/L (136-145); TOTAL PROTEIN 7.2 gm/dL (6.4-8.2)
== END | disposition home or self-care (01) ==
LOC: LAB 15:11
PROVIDERS: ATTEND Internal Medicine
DX: J44.9 Chronic obstructive pulmonary disease, unspecified (principal); R06.02 Shortness of breath

== ENCOUNTER 2023-01-27 15:02 | Emergency (ER) | payer MEDICARE ==
[~2023-01-27] VITALS: Ht 167.6 cm; Wt 93.0 kg
[2023-01-27 15:11] VITALS: BP 122/66
== END 2023-01-27 16:46 | disposition home or self-care (01) ==
LOC: ED 15:02
DX: S40.022A Contusion of left upper arm, initial encounter (principal); K21.9 Gastro-esophageal reflux disease without esophagitis; I10 Essential (primary) hypertension; J44.9 Chronic obstructive pulmonary disease, unspecified; M79.7 Fibromyalgia; Z88.0 Allergy status to penicillin; Z88.8 Allergy status to other drugs, medicaments and biological substances; Z98.890 Other specified postprocedural states; Z87.891 Personal history of nicotine dependence; W01.0XXA Fall on same level from slipping, tripping and stumbling without subsequent striking against object, initial encounter; Y93.89 Activity, other specified; Y92.89 Other specified places as the place of occurrence of the external cause; Y99.8 Other external cause status

== ENCOUNTER 2023-06-02 16:15 | Emergency (ER) | payer MEDICARE ==
[~2023-06-02] VITALS: Ht 167.6 cm; Wt 90.7 kg
[2023-06-02 16:36] VITALS: BP 112/56
[2023-06-02 16:57] LABS: BASO # 0.1 10*3/uL (0.0-0.1); BASO % 0.7 % (0.0-1.0); EOS # 0.1 10*3/uL (0.0-0.4); EOS % 1.2 % (1.0-4.0); HEMATOCRIT 29.3 % (42.0-52.0); LYMPH # 1.7 10*3/uL (1.3-4.4); LYMPH % 19.6 % (27.0-41.0); MEAN CELL VOLUME 75.1 fl (80.0-94.0); MEAN CORPUSCULAR HGB 21.8 pg (27.0-31.0); MONO # 0.8 10*3/uL (0.1-1.0); MONO % 9.1 % (3.0-9.0); NEUT % 68.3 % (47.0-73.0); PLATELET COUNT AUTOMATED 193 10*3/uL (130-400); RED CELL DISTRI WIDTH 21.5 % (0-14.5); WHITE BLOOD COUNT 8.8 10*3/uL (4.8-10.8)
[2023-06-02 17:27] LABS: ALKALINE PHOSPHATASE 76 U/L (46-116); BUN 13 mg/dl (9-23); CHLORIDE 105 mmol/L (98-107); SGPT/ALT 8 U/L (10-49); TOTAL PROTEIN 7.1 gm/dL (6.0-8.0)
[2023-06-02] MEDS ORDERED: PRILOSEC20 M1 PO (17:45)
[2023-06-02] MEDS ORDERED: LYVISPAH10 M1 PO (17:45)
[2023-06-02] MEDS ORDERED: GABAPENTIN100 M2 PO (17:45)
[2023-06-02] MEDS ORDERED: ROPINIROLE HYD0.5 MG PO (17:46)
[2023-06-02] MEDS ORDERED: MONTELUKAST SOD10 MG PO (17:47)
[2023-06-02] MEDS ORDERED: FLOMAX0.4 MG PO (17:47)
[2023-06-02] MEDS ORDERED: Coumadin5 MG PO (17:47)
[2023-06-02] MEDS ORDERED: CYMBALTA30 MG PO (17:48)
[2023-06-02] MEDS ORDERED: IRON325 M3 PO (18:06)
[2023-06-02] MEDS ORDERED: HYDROCODONE-AC1 EAC1 PO (18:06)
== END 2023-06-02 18:13 | disposition home or self-care (01) ==
LOC: ED 16:15
PROVIDERS: Emergency Medicine
DX: D64.9 Anemia, unspecified (principal); M79.605 Pain in left leg; M79.604 Pain in right leg; G62.9 Polyneuropathy, unspecified; K21.9 Gastro-esophageal reflux disease without esophagitis; I10 Essential (primary) hypertension; J44.9 Chronic obstructive pulmonary disease, unspecified; M79.7 Fibromyalgia; E78.00 Pure hypercholesterolemia, unspecified; Z88.0 Allergy status to penicillin; Z88.8 Allergy status to other drugs, medicaments and biological substances; Z98.890 Other specified postprocedural states; F17.200 Nicotine dependence, unspecified, uncomplicated

== ENCOUNTER → 2023-07-06 | Outpatient (CLI) | payer MEDICARE ==
[~2023-07-06] MED LIST changes: +CYMBALTA30 MG PO; +HYDROCODONE-AC1 EAC1 PO; +IRON325 M3 PO; +LYVISPAH10 M1 PO; +MONTELUKAST SOD10 MG PO; +PRILOSEC20 M1 PO
== END | disposition home or self-care (01) ==
LOC: RAD 12:28
PROVIDERS: ATTEND Internal Medicine
DX: M25.512 Pain in left shoulder (principal)

== ENCOUNTER → 2024-03-04 | Outpatient (CLI) | payer MEDICARE | END | disposition home or self-care (01) | LOC: US 12:12 | PROVIDERS: ATTEND Internal Medicine | DX: I73.9 Peripheral vascular disease, unspecified (principal) ==

== ENCOUNTER → 2024-03-14 | Outpatient (CLI) | payer MEDICARE ==
[~2024-03-14] MED LIST changes: +IOHEXOL 350 MG/ML 100 ML VIAL IV ONE; +SODIUM CHLORIDE 0.9% 100 ML BAG IV ONE
== END | disposition home or self-care (01) ==
LOC: LAB 10:33 → CT 11:00
PROVIDERS: ATTEND Internal Medicine
DX: Z01.818 Encounter for other preprocedural examination (principal); K57.30 Diverticulosis of large intestine without perforation or abscess without bleeding; I70.203 Unspecified atherosclerosis of native arteries of extremities, bilateral legs; I70.8 Atherosclerosis of other arteries

== ENCOUNTER 2024-03-22 09:02 | Emergency (ER) | payer MEDICARE ==
[~2024-03-22 09:02] MED LIST changes: -IOHEXOL 350 MG/ML 100 ML VIAL IV ONE; -SODIUM CHLORIDE 0.9% 100 ML BAG IV ONE
[2024-03-22] MEDS ORDERED: Albuterol Sulf/Ipratropium 3 ML VIAL NEB ONE (09:10)
[2024-03-22 09:24] LABS: ABG BASE EXCESS -3.9 mmol/L (-2.0-2.0); ARTERIAL BLOOD GAS PH 7.411 (7.35-7.45)
[2024-03-22] MEDS ORDERED: ACETAMINOPHEN 325 MG TAB PO ONE (09:25)
[2024-03-22 09:38] LABS: BASO % 0.3 % (0.0-1.0); HEMATOCRIT 29.7 % (42.0-52.0); LYMPH # 1.2 10*3/uL (1.3-4.4); LYMPH % 11.6 % (27.0-41.0); MEAN CELL VOLUME 77.1 fl (80.0-94.0); MEAN CORPUSCULAR HGB 22.1 pg (27.0-31.0); MEAN CORPUSCULAR HGB CONC 28.6 g/dl (33.0-37.0); MEAN PLATELET VOLUME 9.8 fl (9.6-12.3); MONO # 0.7 10*3/uL (0.1-1.0); MONO % 6.2 % (3.0-9.0); NEUT # 8.5 10*3/uL (2.3-7.9); NEUT % 80.9 % (47.0-73.0); PLATELET COUNT AUTOMATED 183 10*3/uL (130-400); RED BLOOD COUNT 3.85 10*6/uL (4.50-5.90); RED CELL DISTRI WIDTH 20.6 % (0-14.5); WHITE BLOOD COUNT 10.5 10*3/uL (4.8-10.8)
[2024-03-22] MEDS ORDERED: methylPREDNISolone sod succ 125 MG VIAL IV ONE (09:40)
[2024-03-22] MEDS ORDERED: LEVOFLOXACIN 150 ML IV ONE (09:40)
[2024-03-22] MEDS ORDERED: SODIUM CHLORIDE 0.9% 1,000 ML IV SCH (09:40)
[2024-03-22 09:55] LABS: ACT PARTIAL THROMBO TIME 50.4 SECONDS (20.0-32.1)
[2024-03-22] MEDS ORDERED: ASPIRIN ENTERIC COATED 81 MG TAB PO ONE (09:55)
[2024-03-22 09:56] LABS: ALKALINE PHOSPHATASE 83 U/L (46-116); BUN 19 mg/dl (9-23); CHLORIDE 103 mmol/L (98-107); LIPASE 33 U/L (12-53); POTASSIUM 4.3 mmol/L (3.4-5.1); SGPT/ALT 10 U/L (5-49); TOTAL PROTEIN 7.6 gm/dL (6.0-8.0)
[2024-03-22 10:35] VITALS: BP 185/90
== END 2024-03-22 11:00 | disposition left against medical advice (07) ==
LOC: ED 09:02
PROVIDERS: Internal Medicine
DX: R07.89 Other chest pain (principal); Z53.29 Procedure and treatment not carried out because of patient's decision for other reasons; K21.9 Gastro-esophageal reflux disease without esophagitis; I10 Essential (primary) hypertension; J44.9 Chronic obstructive pulmonary disease, unspecified; Z88.0 Allergy status to penicillin; Z88.8 Allergy status to other drugs, medicaments and biological substances; Z95.5 Presence of coronary angioplasty implant and graft; Z98.890 Other specified postprocedural states; F17.200 Nicotine dependence, unspecified, uncomplicated

== ENCOUNTER 2024-04-27 12:45 | Emergency (ER) | payer OTHER ==
[~2024-04-27] VITALS: Ht 167.6 cm; Wt 85.3 kg
[~2024-04-27 12:45] MED LIST changes: +FEOSOL325 MG PO; +LASIX20 MG PO; +TRELEGY ELLIPT1 EAC1 INH
[2024-04-27 12:52] VITALS: BP 166/67
[2024-04-27] MEDS ORDERED: VIBRAMYCIN100 MG PO (12:55)
[2024-04-27] MEDS ORDERED: HYDROCODONE-AC1 EAC1 PO (13:10)
[2024-04-27] MEDS ORDERED: Acetaminophen/Hydrocodone 5 MG/325 MG TABLET PO ONE (13:10)
[2024-04-27] MEDS ORDERED: CYCLOBENZAPRINE10 MG PO (13:10)
== END 2024-04-27 13:33 | disposition home or self-care (01) ==
LOC: ED 12:45
DX: S16.1XXA Strain of muscle, fascia and tendon at neck level, initial encounter (principal); D64.9 Anemia, unspecified; I50.9 Heart failure, unspecified; I25.10 Atherosclerotic heart disease of native coronary artery without angina pectoris; J44.9 Chronic obstructive pulmonary disease, unspecified; F32.A Depression, unspecified; K21.9 Gastro-esophageal reflux disease without esophagitis; I25.2 Old myocardial infarction; E78.5 Hyperlipidemia, unspecified; F17.200 Nicotine dependence, unspecified, uncomplicated; Z88.0 Allergy status to penicillin; Z88.8 Allergy status to other drugs, medicaments and biological substances; Z95.5 Presence of coronary angioplasty implant and graft; Z98.890 Other specified postprocedural states; X58.XXXA Exposure to other specified factors, initial encounter; Y93.89 Activity, other specified; Y92.89 Other specified places as the place of occurrence of the external cause; Y99.8 Other external cause status

== ENCOUNTER 2025-01-07 17:36 | Emergency (ER) | payer OTHER ==
[~2025-01-07] VITALS: Wt 84.8 kg
[~2025-01-07 17:36] MED LIST changes: +VIBRAMYCIN100 MG PO
[2025-01-07 18:11] VITALS: BP 180/56
[2025-01-07] MEDS ORDERED: TRAMADOL HCL50 MG PO (18:27)
[2025-01-07] MEDS ORDERED: Acetaminophen/Oxycodone 5 MG/325 MG TABLET PO ONE (18:30)
== END 2025-01-07 18:53 | disposition home or self-care (01) ==
LOC: ED 17:36
DX: S43.401A Unspecified sprain of right shoulder joint, initial encounter (principal); K21.9 Gastro-esophageal reflux disease without esophagitis; I10 Essential (primary) hypertension; J44.9 Chronic obstructive pulmonary disease, unspecified; F17.200 Nicotine dependence, unspecified, uncomplicated; Z88.0 Allergy status to penicillin; Z88.8 Allergy status to other drugs, medicaments and biological substances; Z95.5 Presence of coronary angioplasty implant and graft; Z98.890 Other specified postprocedural states; X50.0XXA Overexertion from strenuous movement or load, initial encounter; Y93.89 Activity, other specified; Y92.89 Other specified places as the place of occurrence of the external cause; Y99.8 Other external cause status